=== PATIENT | female | born 1930 | race Caucasian/White ===

== ENCOUNTER → 2016-04-13 | Outpatient (CLI) | payer MEDICARE ==
[~2016-04-13] MED LIST: CIPRO 500MG TA500 MG PO; COREG 3.123.125 MG/T PO; COREG 6.256.25 MG/TA PO; FERRO-TIME325 MG PO; MIRTAZAPINE7.5 MG PO; NORVASC2.5 MG PO; PRINIVIL20 MG PO; PRINIVIL40 MG PO; PROTONIX 40MG T40 MG PO; SYNTHROID0.05 MG/TA PO; SYNTHROID0.1 MG/TAB PO
[2016-04-13 11:27] LABS: BASO % 0.3 % (0.0-2.0); EOS % 1.1 % (0-4.0); GRAN # 2.2 (1.4-6.5); GRAN % 59.7 % (42.2-75.2); HEMATOCRIT 41.4 % (37.0-47.0); HEMOGLOBIN 12.6 g/dl (12.5-16.0); LYMPH # 1.1 (1.2-3.4); LYMPH % 29.5 % (20.0-51.0); MEAN CELL VOLUME 103 fl (80.0-100.0); MEAN CORPUSCULAR HEMOGLOBIN 31 pg (27.0-31.0); MEAN CORPUSCULAR HGB CONC 30 g/dl (33.0-37.0); MEAN PLATELET VOLUME 12.1 fl (7.4-10.4); MONO # 0.3 (0.1-0.6); MONO % 9.1 % (1.7-9.3); PLATELET COUNT 142 K/mm3 (130-400); RED BLOOD COUNT 4.03 M/mm3 (4.10-5.30); WHITE BLOOD COUNT 3.7 K/mm3 (4.8-10.8)
[2016-04-13 12:08] LABS: ADJUSTED CALCIUM 10.1 mg/dL (8.4-10.2); ALBUMIN 3.8 gm/dL (3.5-5.0); BILIRUBIN,TOTAL 0.8 mg/dL (0.0-1.0); CALCIUM 9.9 mg/dL (8.4-10.2); CREATININE, serum 0.73 mg/dL (0.52-1.25); POTASSIUM 3.8 mmol/L (3.4-5.0); TOTAL PROTEIN 6.7 gm/dL (6.4-8.2)
[2016-04-13 12:39] LABS: THYROID STIMULATING HORMONE 10.9 uIU/mL (0.465-4.680)
== END ==
LOC: ZCOL.LAB 09:58
PROVIDERS: Family Medicine
DX: K21.9 Gastro-esophageal reflux disease without esophagitis (principal); E03.8 Other specified hypothyroidism

== ENCOUNTER → 2016-04-15 | Outpatient (CLI) | payer MEDICARE ==
[2016-04-15 12:55] LABS: PH 5 (5-8); SQUAMOUS EPITHELIAL 0-2 /hpf; URINE APPEARANCE Turbid; URINE BACTERIA Occasional /hpf; URINE BILIRUBIN Negative (NEGATIVE); URINE BLOOD Negative (NEGATIVE); URINE COLOR Amber; URINE GLUCOSE Negative (NEGATIVE); URINE KETONE Negative (NEGATIVE); URINE UROBILINOGEN Negative (NEGATIVE); URINE WBC None Seen /hpf
== END ==
LOC: ZCOL.LAB 10:36
PROVIDERS: Family Medicine
DX: R41.89 Other symptoms and signs involving cognitive functions and awareness (principal)

== ENCOUNTER → 2016-04-16 | Outpatient (CLI) | payer MEDICARE ==
[2016-04-16 12:34] LABS: VENOUS BLOOD GAS BE 12.8 (-4-4); VENOUS BLOOD GAS SAO2 15.4 % (60-80); VENOUS BLOOD GAS SITE VENIPUNCTURE
[2016-04-16 13:03] LABS: ADJUSTED CALCIUM 9.9 mg/dL (8.4-10.2); ALBUMIN 3.9 gm/dL (3.5-5.0); BILIRUBIN,TOTAL 0.8 mg/dL (0.0-1.0); CALCIUM 9.8 mg/dL (8.4-10.2); CREATININE, serum 0.94 mg/dL (0.52-1.25); TOTAL PROTEIN 7.1 gm/dL (6.4-8.2)
== END ==
LOC: COL.LAB 11:54
PROVIDERS: Family Medicine
DX: Z02.89 Encounter for other administrative examinations (principal)

== ENCOUNTER 2016-04-18 19:25 | Inpatient (IN) | payer MEDICARE ==
[~2016-04-18] VITALS: Ht 167.6 cm; Wt 47.8 kg
[2016-04-18] VITALS (97 sets, daily range): BP systolic 121; BP diastolic 81; PULSE 95; TEMP 97.9; O2SAT 71–100
[~2016-04-18 19:25] MED LIST changes: -COREG 3.123.125 MG/T PO; -FERRO-TIME325 MG PO; -MIRTAZAPINE7.5 MG PO; -PRINIVIL40 MG PO; -PROTONIX 40MG T40 MG PO; -SYNTHROID0.05 MG/TA PO
[2016-04-18] MEDS ORDERED: NORVASC2.5 MG PO (19:48)
[2016-04-18] MEDS ORDERED: COREG 3.123.125 MG/T PO (19:48)
[2016-04-18] MEDS ORDERED: FERRO-TIME325 MG PO (19:48)
[2016-04-18] MEDS ORDERED: SYNTHROID0.05 MG/TA PO (19:49)
[2016-04-18] MEDS ORDERED: PRINIVIL40 MG PO (19:49)
[2016-04-18] MEDS ORDERED: PROTONIX 40MG T40 MG PO (19:49)
[2016-04-18] MEDS ORDERED: MIRTAZAPINE7.5 MG PO (19:50)
[2016-04-18 19:53] LABS: BASO % 0.5 % (0.0-2.0); EOS % 0.5 % (0-4.0); GRAN # 2.5 (1.4-6.5); GRAN % 65.5 % (42.2-75.2); HEMATOCRIT 39.4 % (37.0-47.0); HEMOGLOBIN 12.1 g/dl (12.5-16.0); LYMPH # 0.9 (1.2-3.4); MEAN CELL VOLUME 102 fl (80.0-100.0); MEAN CORPUSCULAR HEMOGLOBIN 31 pg (27.0-31.0); MEAN CORPUSCULAR HGB CONC 31 g/dl (33.0-37.0); MEAN PLATELET VOLUME 11.6 fl (7.4-10.4); MONO # 0.4 (0.1-0.6); MONO % 10.2 % (1.7-9.3); PLATELET COUNT 136 K/mm3 (130-400); RED BLOOD COUNT 3.86 M/mm3 (4.10-5.30); REDCELL DISTRIBUTION WIDTH-CV 14.6 % (11.5-14.5); WHITE BLOOD COUNT 3.8 K/mm3 (4.8-10.8)
[2016-04-18 19:56] LABS: ARTERIAL BLD GAS O2 SATURATION 94.6 % (92-100); ARTERIAL BLD GAS TCO2 CT 47.1; ARTERIAL BLOOD GAS BASE EXCESS 12.8 (-2-2); ARTERIAL BLOOD GAS PHT 7.26 C (7.35-7.45); ARTERIAL BLOOD GAS pH 7.26 (7.35-7.45); OXYHEMOGLOBIN 93.5 %
[2016-04-18 19:59] LABS: ALLEN TEST YES; ALLENS TEST RESULT PASS; ATS? YES
[2016-04-18 20:00] LABS: PROTHROMBIN TIME 10.9 SECONDS (9.7-12.8)
[2016-04-18 20:02] LABS: ADJUSTED CALCIUM 9.9 mg/dL (8.4-10.2); ALBUMIN 3.6 gm/dL (3.5-5.0); BILIRUBIN,TOTAL 0.7 mg/dL (0.0-1.0); CALCIUM 9.6 mg/dL (8.4-10.2); CREATININE, serum 0.68 mg/dL (0.52-1.25); POTASSIUM 4.2 mmol/L (3.4-5.0); TOTAL PROTEIN 6.6 gm/dL (6.4-8.2)
[2016-04-18 20:15] LABS: TROPONIN-I 0.018 ng/mL (0.000-0.034)
[2016-04-18 20:20] LABS: PH 5 (5-8); SQUAMOUS EPITHELIAL None Seen /hpf; URINE APPEARANCE Hazy; URINE BACTERIA Rare /hpf; URINE BILIRUBIN Negative (NEGATIVE); URINE BLOOD Negative (NEGATIVE); URINE COLOR Yellow; URINE GLUCOSE Negative (NEGATIVE); URINE KETONE Negative (NEGATIVE); URINE UROBILINOGEN Negative (NEGATIVE)
[2016-04-18 20:57] LABS: ARTERIAL BLD GAS O2 SATURATION 97.5 % (92-100); ARTERIAL BLD GAS TCO2 CT 43.5; ARTERIAL BLOOD GAS BASE EXCESS 11.4 (-2-2); ARTERIAL BLOOD GAS PHT 7.31 C (7.35-7.45); ARTERIAL BLOOD GAS PO2 106.7 mmHg (80-100); ARTERIAL BLOOD GAS PO2T 106.7 (80-100); ARTERIAL BLOOD GAS pH 7.31 (7.35-7.45); OXYHEMOGLOBIN 96.6 %
[2016-04-18 20:58] LABS: ALLEN TEST YES; ALLENS TEST RESULT PASS; ATS? YES
[2016-04-18 22:37] LABS: ARTERIAL BLD GAS O2 SATURATION 98.5 % (92-100); ARTERIAL BLD GAS TCO2 CT 39.3; ARTERIAL BLOOD GAS BASE EXCESS 13.8 (-2-2); ARTERIAL BLOOD GAS HCO3 37.9 meq/L (22-26); ARTERIAL BLOOD GAS PHT 7.54 C (7.35-7.45); ARTERIAL BLOOD GAS PO2 120.4 mmHg (80-100); ARTERIAL BLOOD GAS PO2T 120.4 (80-100); ARTERIAL BLOOD GAS pH 7.54 (7.35-7.45); OXYHEMOGLOBIN 97.6 %
[2016-04-18 22:38] LABS: ALLEN TEST YES; ALLENS TEST RESULT PASS; ATS? YES
[2016-04-19] VITALS (1239 sets, daily range): BP systolic 94–143; BP diastolic 57–103; PULSE 73–102; TEMP 97.4–98.3; O2SAT 72–100
[2016-04-19 00:33] LABS: THYROID STIMULATING HORMONE 10.1 uIU/mL (0.465-4.680)
[2016-04-19 02:56] LABS: ARTERIAL BLD GAS O2 SATURATION 95.4 % (92-100); ARTERIAL BLD GAS TCO2 CT 45.9; ARTERIAL BLOOD GAS BASE EXCESS 14.9 (-2-2); ARTERIAL BLOOD GAS HCO3 43.5 meq/L (22-26); ARTERIAL BLOOD GAS PHT 7.37 C (7.35-7.45); ARTERIAL BLOOD GAS pH 7.37 (7.35-7.45); OXYHEMOGLOBIN 94.4 %
[2016-04-19 02:58] LABS: ALLEN TEST YES; ALLENS TEST RESULT PASS; ATS? YES
[2016-04-19 05:44] LABS: ARTERIAL BLD GAS O2 SATURATION 94.4 % (92-100); ARTERIAL BLD GAS TCO2 CT 46.4; ARTERIAL BLOOD GAS BASE EXCESS 15.4 (-2-2); ARTERIAL BLOOD GAS PHT 7.38 C (7.35-7.45); ARTERIAL BLOOD GAS PO2 72.4 mmHg (80-100); ARTERIAL BLOOD GAS PO2T 72.4 (80-100); ARTERIAL BLOOD GAS pH 7.38 (7.35-7.45); OXYHEMOGLOBIN 93.4 %
[2016-04-19 05:46] LABS: ALLEN TEST YES; ATS? YES
[2016-04-19 05:47] LABS: ALLENS TEST RESULT PASS
[2016-04-19 05:52] LABS: BASO % 0.5 % (0.0-2.0); EOS % 0.7 % (0-4.0); GRAN # 2.5 (1.4-6.5); GRAN % 56.9 % (42.2-75.2); HEMATOCRIT 37.7 % (37.0-47.0); LYMPH # 1.2 (1.2-3.4); MEAN CELL VOLUME 104 fl (80.0-100.0); MEAN CORPUSCULAR HEMOGLOBIN 32 pg (27.0-31.0); MEAN CORPUSCULAR HGB CONC 31 g/dl (33.0-37.0); MEAN PLATELET VOLUME 11.6 fl (7.4-10.4); MONO # 0.6 (0.1-0.6); MONO % 13.9 % (1.7-9.3); PLATELET COUNT 143 K/mm3 (130-400); RED BLOOD COUNT 3.63 M/mm3 (4.10-5.30); REDCELL DISTRIBUTION WIDTH-CV 14.6 % (11.5-14.5); WHITE BLOOD COUNT 4.4 K/mm3 (4.8-10.8)
[2016-04-19 05:53] LABS: HEMOGLOBIN 11.5 g/dl (12.5-16.0)
[2016-04-19 06:00] LABS: CALCIUM 9.2 mg/dL (8.4-10.2); CREATININE, serum 0.8 mg/dL (0.52-1.25); POTASSIUM 3.6 mmol/L (3.4-5.0)
[2016-04-19 09:00] LABS: ARTERIAL BLD GAS O2 SATURATION 98.9 % (92-100); ARTERIAL BLD GAS TCO2 CT 50.7; ARTERIAL BLOOD GAS BASE EXCESS 16.6 (-2-2); ARTERIAL BLOOD GAS HCO3 47.6 meq/L (22-26); ARTERIAL BLOOD GAS PHT 7.29 C (7.35-7.45); ARTERIAL BLOOD GAS pH 7.29 (7.35-7.45); OXYHEMOGLOBIN 98.1 %
[2016-04-19 09:02] LABS: ARTERIAL BLOOD GAS PO2 231.3 mmHg (80-100); ARTERIAL BLOOD GAS PO2T 231.3 (80-100); ATS? YES
[2016-04-19 13:28] LABS: INFLUENZA B NEGATIVE
[2016-04-20] VITALS (98 sets, daily range): BP systolic 96–116; BP diastolic 71–73; PULSE 85–91; TEMP 98.1; O2SAT 78–100
== END 2016-04-20 13:50 | disposition hospice, inpatient (51) | DRG 189 ==
LOC: COL.ER 19:25 → ICU 21:30
PROVIDERS: Emergency Medicine; Internal Medicine Pulmonary Disease; Nurse Practitioner Family
DX: J96.22 Acute and chronic respiratory failure with hypercapnia (principal); E87.4 Mixed disorder of acid-base balance; E46 Unspecified protein-calorie malnutrition; Z68.1 Body mass index [BMI] 19.9 or less, adult; Z51.5 Encounter for palliative care; Z66 Do not resuscitate; I10 Essential (primary) hypertension; F03.90 Unspecified dementia, unspecified severity, without behavioral disturbance, psychotic disturbance, mood disturbance, and anxiety
CPT/HCPCS: 99223-AI; 99239; A4315; J1940; J2060; J3480; J7030